=== PATIENT | female | born 1980 | race Caucasian/White ===

== ENCOUNTER 2017-06-27 08:44 | Day surgery (SDC) | payer BC ==
--- NOTE | 2017-06-24 09:28 | HP ---
DATE OF SURGERY: 06/27/2017 ADMISSION DIAGNOSIS: Subcutaneous mass on the back. ANTICIPATED PROCEDURE: Excision. HISTORY OF PRESENT ILLNESS: The patient has a 2 cm subcu mass on the back. PAST MEDICAL HISTORY: ALLERGIES: NONE. MEDICATIONS: Dulcolax. PAST SURGICAL HISTORY: Umbilical hernia, hysterectomy, breast implants. SOCIAL HISTORY: Negative. FAMILY HISTORY: MS, diabetes, heart disease. REVIEW OF SYSTEMS: Negative. PHYSICAL EXAMINATION: VITAL SIGNS: Normal. CHEST: Clear. COR: Regular. IMPRESSION: Lesion of the back. PLAN: Excision.
[~2017-06-27 08:44] MED LIST: Sodium Chloride 0.9% 1000 ML 1,000 ML IV SCH; Sodium Chloride 0.9% 1000 ML 1,000 ML ONE; XYLOCAINE 1% HCL 20 ML MDV ONE
[2017-06-27] MEDS ORDERED: VERSED 5 MG/5 ML IV ONE (08:45)
[2017-06-27] MEDS ORDERED: DEMEROL 50 MG IJ ONE (08:45)
[2017-06-27] MEDS ORDERED: XYLOCAINE 1% HCL 20 ML MDV ONE (13:25)
[2017-06-27 15:23] VITALS: O2SAT 100
[2017-06-27 15:24] VITALS: BP 116/63; PULSE 75
--- NOTE | 2017-06-28 12:20 | OP ---
SURGERY DATE/TIME: 06/27/2017 5010 PREOPERATIVE DIAGNOSIS: Lipoma of the back. POSTOPERATIVE DIAGNOSIS: Lipoma of the back. PROCEDURE: Excision of 3 cm symptomatic lipoma of the back with closure. SURGEON: Ranulfo Isabel M.D. ANESTHESIA: Local IV sedation. COMPLICATIONS: None. CONDITION: Stable. INDICATION: A patient requiring removal of lipoma of the back. It has been marked preoperatively by the patient. DESCRIPTION OF PROCEDURE: She is rolled in right lateral decubitus position. Routine prep and drape. Time out performed. IV sedation titrated. Oximetry kept over 90%. Satisfactory comfort level. 1% lidocaine. The lesion was removed in toto. The 3 cm lesion basically in between the confluence of the three areas that she previously marked. It did look dense and painful. It was removed in toto. It was unilocular. Hemostasis satisfactory. Closed with 3-0 Vicryl, 4-0 Vicryl. Steri-Strips. The patient tolerated the procedure satisfactorily.
== END 2017-06-27 15:34 | disposition home or self-care (01) ==
LOC: SDC 08:44
PROVIDERS: ATTEND Surgery
PROC: 0JB70ZZ Excision of Back Subcutaneous Tissue and Fascia, Open Approach (ICD-10-PCS; principal; 2017-06-27)
DX: D17.1 Benign lipomatous neoplasm of skin and subcutaneous tissue of trunk (principal)
CPT/HCPCS: 88304; J2175; J2250

== ENCOUNTER 2023-02-07 08:33 | Day surgery (SDC) | payer BC ==
--- NOTE | 2023-01-31 14:28 | HP ---
DATE OF SURGERY: 02/07/2023 HISTORY OF PRESENT ILLNESS: The patient is a 42-year-old female presents with some persistent right lower quadrant pain. It looks like she has been seen by [facility]. She is taking some shots for some ovary issue. She has right lower quadrant near her hip bone. She had section x2, hysterectomy with left ovary for endometriosis. Not have been able to find the cause of her pain. She has this and endometrioma. Last colonoscopy at [facility] was unremarkable. PAST MEDICAL HISTORY: Endometriosis. Depression. PAST SURGICAL HISTORY: Appendectomy. Breast augmentation. section. Cholecystectomy. D&C. Hysterectomy. Umbilical hernia. Myringotomy. Skin cyst removal. ALLERGIES: TINIDAZOLE. MEDICATIONS: Topamax, Paxil. FAMILY HISTORY: None reported. SOCIAL HISTORY: Occasional alcohol. REVIEW OF SYSTEMS: CONSTITUTIONAL: Denies fever or chills. CHEST: Denies shortness of breath. CVS: Denies chest pain. ABDOMEN: Reports right lower quadrant pain. PHYSICAL EXAMINATION: GENERAL: No acute distress. CHEST: Nonlabored. No shortness of breath. CVS: Regular rate and rhythm. ABDOMEN: Soft. IMPRESSION: Persistent right lower quadrant and right pelvic pain. PLAN: Colonoscopy with Dr. Ranulfo Isabel. As dictated by Sakshi Galan NP.
[2023-02-07 08:52] VITALS: RESP 16
[2023-02-07] MEDS ORDERED: Lactated Ringers 1,000 ML IV ONE (08:58)
[2023-02-07] MEDS ORDERED: Lactated Ringers 1,000 ML IV SCH (09:30)
[2023-02-07] MEDS ORDERED: DIPRIVAN 200 MG/20 ML IV ONE ×2 (11:04→11:16)
[2023-02-07] MEDS ORDERED: Versed 2 MG/2 ML Injection ONE (11:04)
[2023-02-07 11:58] VITALS: TEMP 96.3
[2023-02-07 12:13] VITALS: BP 112/73; PULSE 67; O2SAT 96
--- NOTE | 2023-02-07 13:15 | OP ---
SURGERY DATE/TIME: 02/07/2023 1110 PREOPERATIVE DIAGNOSIS: Right lower quadrant pain. POSTOPERATIVE DIAGNOSIS: Normal colonoscopic examination to cecum. PROCEDURE: Colonoscopy complete to cecum. SURGEON: Ranulfo Isabel M.D. ANESTHESIA: MAC. COMPLICATIONS: None. CONDITION: Stable. INDICATION: A patient has persistent right lower quadrant pain. She had a colonoscopy about two years ago I believe in [place]. She has not had one recently. We are almost to the point of doing laparoscopy/laparotomy on this patient for this. DESCRIPTION OF PROCEDURE: She is taken to endoscopy. Left lateral decubitus position. Anal digital examination satisfactory. Scope introduced. The scope advanced to the cecum. Base of the cecum, ileocecal valve, appendiceal orifice normal. Scope circumferentially withdrawn. The patient tolerated the procedure satisfactorily and the exam was normal. It was discussed with her . We will see her back in the office in two weeks.
== END 2023-02-07 12:25 | disposition home or self-care (01) ==
LOC: SDC 08:33
PROVIDERS: ATTEND Surgery
DX: R10.31 Right lower quadrant pain (principal)
CPT/HCPCS: J2250; J2704

== ENCOUNTER 2023-03-07 12:47 | Day surgery (SDC) | payer BC ==
--- NOTE | 2023-03-05 12:14 | HP ---
DATE: 03/07/2023 HISTORY OF PRESENT ILLNESS: Patient is a 42 year-old female who presents with persistent right lower quadrant/right pelvic pain. Patient has had a X 2. She also has had a hysterectomy. She believes she still has her ovaries. This was due to endometriosis. She has this persistent right lower quadrant pain. She has been worked up for this at [facility]. She has not had any definitive treatment. She could certainly have an endometrioma in her incision scar line from her hysterectomy/. PAST MEDICAL HISTORY: Anxiety, depression. CURRENT MEDICATIONS: Dulcolax, Paxil, probiotic. ALLERGIES: PER CHART. PAST SURGERIES: Appendectomy, breast augmentation, , hysterectomy, cholecystectomy, D&C, umbilical hernia, cystectomy, myringotomy. SOCIAL HISTORY: Occasional alcohol, former smoker. FAMILY HISTORY: None reported. REVIEW OF SYSTEMS: CONSTITUTIONAL: Denies fever or chills. CHEST: Denies shortness of breath. CVS: Denies chest pain. ABDOMEN: Reports right lower quadrant pain. PHYSICAL EXAMINATION: GENERAL: No acute distress. CHEST: Nonlabored. No shortness of breath. CVS: Regular rate and rhythm. ABDOMEN: Soft. IMPRESSION: 1. PERSISTENT RIGHT LOWER QUADRANT ABDOMINAL PAIN, POSSIBLE ENDOMETRIOMA. PLAN: Laparoscopic bilateral oophorectomy and exploration of right side of Pfannenstiel incision for possible endometrioma with Dr. Mark. Isabel. This report was dictated for Dr. Isabel by Sakshi Galan NP.
[~2023-03-07 12:47] MED LIST changes: +Lactated Ringers 1,000 ML IV ONE; +Lactated Ringers 1,000 ML IV SCH; +Sensorcaine 0.25% 10 ML ONE; -Sodium Chloride 0.9% 1000 ML 1,000 ML IV SCH; -Sodium Chloride 0.9% 1000 ML 1,000 ML ONE; -XYLOCAINE 1% HCL 20 ML MDV ONE
[2023-03-07 13:16] VITALS: RESP 16
[2023-03-07] MEDS ORDERED: Zemuron 100 MG/10 ML ONE (13:54)
[2023-03-07] MEDS ORDERED: SUBLIMAZE 100 MCG/2 ML ONE ×2 (13:54→16:46)
[2023-03-07] MEDS ORDERED: Versed 2 MG/2 ML Injection ONE (13:54)
[2023-03-07] MEDS ORDERED: TORAdol 30 mg Injection ONE (13:54)
[2023-03-07] MEDS ORDERED: Zofran 4 MG/2 ML VIAL ONE (13:54)
[2023-03-07] MEDS ORDERED: Xylocaine-Mpf 2% 5 Ml Vial ONE (13:54)
[2023-03-07] MEDS ORDERED: Decadron 4 MG INJ ONE (13:54)
[2023-03-07] MEDS ORDERED: BRIDION 200MG/2ML IV ONE (13:54)
[2023-03-07] MEDS ORDERED: DIPRIVAN 200 MG/20 ML IV ONE (13:54)
[2023-03-07] MEDS ORDERED: OFIRMEV 100 ML IV ONE (14:03)
[2023-03-07] MEDS ORDERED: Lactated Ringers 1,000 ML IV ONE (15:32)
[2023-03-07] MEDS ORDERED: Marcaine 0.5%/Epinephrine 10 ML ONE (15:41)
[2023-03-07] MEDS ORDERED: DEMEROL 50 MG ONE (16:31)
[2023-03-07] MEDS ORDERED: Hydromorphone 1 mg/ml Injection ONE (16:37)
[2023-03-07 17:16] VITALS: TEMP 98
[2023-03-07 17:40] VITALS: BP 114/68; PULSE 75; O2SAT 93
[2023-03-07 18:59] LABS: Appearance Cloudy (Clear); Bacteria None Seen /HPF (None Seen); Bilirubin Negative (Negative); Blood Negative (Negative); Epithelial Cells None Seen /HPF (None Seen); Glucose, Urine Negative (Negative); Ketones Negative (Negative); Leukocyte Esterase Negative (Negative); Nitrite Negative (Negative); Ph 5.5 (4.6-8.0); Protein,Urine Dip Negative (Negative); RBC 0-2 /HPF (0-5); Urobilinogen 0.2 mg/dL (0.2); WBC 0-2 /HPF (0-5)
--- NOTE | 2023-03-08 11:34 | OP ---
SURGERY DATE: 03/07/2023 SURGERY TIME: 1430 PREOPERATIVE DIAGNOSIS: 1. LOWER ABDOMINAL PAIN. POSTOPERATIVE DIAGNOSIS: 1. LOWER ABDOMINAL PAIN. PROCEDURE: 1. Laparoscopy with bilateral oophorectomy and exploration of right side of Pfannenstiel incision. SURGEON: Ranulfo Isabel M.D. ANESTHESIA: General. COMPLICATIONS: None. CONDITION: Stable. INDICATION: The patient is 42 years-old. She has severe persistent right pelvic pain and abdominal wall pain. She has been treated for endometriosis. She had a hysterectomy some time ago, but she did have both ovaries left. She is about 42. She is not concerned about losing her ovarian function at this time. It feels like it is sort of light anyway as she is having just absolutely disabling discomfort. She could have persistent endometriosis. She could have endometriosis in her old incision. We have discussed things and at this time, we are looking at exploring the right corner of her old incision and doing a completion BSO. OPERATIVE PROCEDURE: She was taken to surgery. General anesthetic. Routine prep and drape. Veress needle inserted in right upper quadrant. 5 port initially inserted at the umbilicus, two 5's laterally in the pelvis. The 5 at the umbilicus changed to a 12. Both ovaries have been identified. There was a portion of tube on both the left and right ovaries. There was a piece of colon sitting over top of the left ovary. The right ovary approached first with just a minimal mobilization. The ureter was seen 2 cm inferior to the attachment of the adnexa against the sidewall. It was able to be navigated into the stapling device with the nathan cartridge. The residual tube and ovary were able to be totally taken. The staple line was excellent and there was no residual tissue there. It was placed in a condom bag and removed. Moving over the left side, it was necessary to free up the colon from above. This allowed good visualization of the tube and ovary on the left. The ovary on the left was a little bigger. I think it has some small chocolate cysts present. It was mobilized slightly from the wall and then it was able to be taken with 1 fire from the stapler. Staple fired. It was a clean field. There was no residual tube or ovary on the sidewall. The tube and ovary were free and floating. Placed in a condom bag and removed. Field was totally dry. The hole closure device was used, 0 Vicryl at the umbilicus. The field was then closed with inverting 4-0 Vicryl and glue. The right corner of the incision extended just about an inch laterally and a curvilinear incision. There was nothing specific. There were no large stitches. There was no endometrial implants. There was some just slight light, light moderate scar tissue and a 4" long by 1 " wide X about 1/2 cm thick area of scarring over the top of this incision over here on the right lateral corner of the abdominal wall that was taken. Hemostasis satisfactory. Closed with 2-0 Vicryl, 4-0 Vicryl, and glue. Patient tolerated the procedure satisfactory.
== END 2023-03-07 17:43 | disposition home or self-care (01) ==
LOC: SDC 12:47
PROVIDERS: ATTEND Surgery
DX: R10.31 Right lower quadrant pain (principal)
CPT/HCPCS: 81001; 87086; J1100; J1170; J1885; J2175; J2250; J2405; J2704; J3010; L0625